=== PATIENT | male | born 1945 | race Caucasian/White ===

== ENCOUNTER 2019-12-15 14:34 | Inpatient (IN) ==
[2019-12-15] MEDS ORDERED: ACETAMINOPHEN 1,000 MG/100 ML VIAL IV STA (15:15)
[2019-12-15] MEDS ORDERED: MoRPHine SULFATE 10 MG/ML CARP/VIAL IV STA (15:15)
[2019-12-15 15:36] LABS: Eosinophils # (auto) 0.01 K/uL (0-0.5); Eosinophils % (auto) 0.1 %; Hemoglobin 13.1 g/dL (14.0-18.0); Immature Granulocytes # (auto) 0.05 K/uL (0.00-0.02); Immature Granulocytes % (auto) 0.4 %; Mean Corpuscular Hemoglobin 26.8 pg (25-34); Mean Corpuscular Volume 83.8 fL (80-100); Mean Platelet Volume 10.7 fL (7.4-10.4); Monocytes # (auto) 0.72 K/uL (0.11-0.59); Monocytes % (auto) 5.7 %; Neutrophils # (auto) 10.49 K/uL (1.4-6.5); Neutrophils % (auto) 82.8 %; Platelet Count 277 K/uL (130-400); RDW Coefficient of Variation 14.6 % (11.5-14.5); RDW Standard Deviation 45.1 fL (36.4-46.3); Red Blood Count 4.89 M/uL (4.7-6.1); White Blood Count 12.67 K/uL (4.8-10.8)
--- NOTE | 2019-12-15 15:36 | XRay Report ---
XR chest 1V portable CLINICAL HISTORY: Chest Pain dyspnea COMPARISON STUDY: 04/06/2018 FINDINGS: Mild increase in cardiac size as well as pulmonary vasculature. Progressive pleural thickening versus loculated effusion right and to a lesser extent left basilar he mithorax. IMPRESSION: . Findings of mild congestive failure with progressive pleural reactive changes versus l oculated effusion over the right hemithorax and left base. ACT 112: Negative or not required by law. The above report was generated using voice recognition software. It may contain grammatical, syntax or spelling errors. Electronically signed by: Kahlil Jacob M.D. 12/15/2019 3:35 PM
[2019-12-15 15:49] LABS: INR 1.1 (0.9-1.1); Partial Thromboplastin Ratio 0.8; Partial Thromboplastin Time 23.7 Seconds (21.0-31.0); Prothrombin Time 11.7 Seconds (9.0-12.0)
[2019-12-15 15:55] LABS: Alanine Aminotransferase 43 U/L (12-78); Albumin Level 3.3 gm/dl (3.4-5.0); Aspartate Aminotransferase 18 U/L (15-37); BUN Creatinine Ratio 23.7 (10-20); Bilirubin Direct 0.1 mg/dl (0-0.2); Blood Urea Nitrogen 22 mg/dl (7-18); Calcium 9.4 mg/dl (8.5-10.1); Carbon Dioxide 32 mmol/L (21-32); Chloride 102 mmol/L (98-107); Creatinine Clr Calc Pharmacy 84.7 ml/min; Est GFR (African American) 94.7; Est GFR (Non-African American) 81.7; Glucose 127 mg/dl (70-99); Lipase 52 U/L (73-393); Magnesium 2.5 mg/dl (1.8-2.4); Potassium 4.7 mmol/L (3.5-5.1); Sodium 138 mmol/L (136-145)
[2019-12-15 16:04] LABS: Albumin Globulin Ratio 0.8 (0.9-2); Alkaline Phosphatase 94 U/L (45-117); Bilirubin,Total 0.6 mg/dl (0.2-1); Phosphorus 3.9 mg/dl (2.5-4.9); Total Protein 7.3 gm/dl (6.4-8.2); Troponin I < 0.015 ng/ml (0-0.045)
--- NOTE | 2019-12-15 16:48 | Emergency Department Note ---
Impression & Plan Metastatic disease, Pulmonary embolism, Lumbar pain, Weakness of right leg ED Provider Note NAME: VANESSA WAGNER AGE: 74 SEX: M ARRIVES VIA: Ambulance INFORMANT: Patient, ED PROVIDER(S): Martin Smiley MD CHIEF COMPLAINT: Back pain and right lower extremity weakness. PLAN: Disposition: Transfer MEDICAL DECISION MAKING: The patient is a pleasant 74-year-old gentleman with a past medical history of hyperlipidemia, ILD on home oxygen who presents emergency department with worsening back pain and new right lower extremity weakness where he is unable to ambulate which occurs in the setting of a recent diagnosis of presumed malignancy related to a left sided neck mass which had had biopsy which demonstrated atypical cells suspicious for carcinoma in addition to having CT of the chest demonstrating infiltrative soft tissue density in the mediastinum worrisome for neoplastic process. The patient was seen by ENT yesterday with plan for repeat biopsy for further characterization of the patient's presumed malignant process. On arrival patient is uncomfortable in moderate pain distress, afebrile with stable vital signs. On exam the patient has 3/5 strength of the right lower extremity. Reflexes within normal limits. There is no clonus. EKG with out overt ST elevation or depression, chest x-ray with prog ressive pleural thickening as well as possibility of loculated effusion further clarified on CT of the chest. WBC 12.6, nonspecific. H/H 13.3/41, similar to prior values. Chemistry without acidosis. Electrolytes unremarkable. Troponin negative/undetectable. Lipase not elevated. CT of the neck, chest and abdomen pelvis were performed and demonstrate evidence suggestive of aggressive and progressive metastatic disease as the patient is now noted to have bilateral neck mass suspicious for malignancy in addition to the patient's known mediastinal mass with new diagnosis of pulmonary embolism. Distally, there are multiple enhancing intramuscular masses involving the paraspinal muscles bila terally and gluteal musculature. The right iliopsoas at the hip region is also involved. Metastatic disease is suspected. There is additional note of likely metastatic infiltration of the aortocaval retroperitoneal soft tissues as well as pancreatic soft tissues. Small pericardial effusion is noted as well. Given the patient's recent biopsy of his neck mass that did show atypical cells consis tent with carcinoma findings are most consistent with metastatic disease. Patient will likely benefit from MRI of the C, T, L-spine for further characterization of the extent of the patient's metastatic disease and how they may relate to his lower extremity weakness. I did review the findings with the [facility] hospitalist, Dr. Mahajan, and we agree the patient's condition and complexity and in the setting of aggressive metastatic disease with concern for possible spinal involvement given his leg weakness reasonable to transfer to tertiary care center for higher level of care. I did review this plan and findings with the patient and he is agreeable for transfer to [facility] [place] and case was reviewed with Dr. Alfaro triage physician and admission was accepted with accepting physician Dr. Su. Patient was treated with Lovenox as well as IV Decadron and morphine for pain. Triage Nursing notes reviewed and agree them. Prior medical records reviewed Vital Signs: reviewed and remarkable for no significant abnormalities Differential diagnosis: Musculoskeletal, disc herniation, fracture, metastatic disease, cord compression, discitis, sciatica, cauda equina, infection, aortic disease, renal colic, gastrointestinal, as well as other pathologies. ER treatment provided: See below. Diagnostics interpreted by me: ECG: Normal sinus rhythm, 89 bpm, no ectopy, Nonspecific T wave abnormality, nonspecific T wave abnormality, no overt ST elevation or depression. Cardiac Monitoring: An order for continuous cardiac monitoring was placed and demonstrated normal sinus rhythm, 89 bpm, no ectopy. Laboratory studies: See below Imaging studies: See below Consultation(s): [facility] [place] physician, Dr. Alfaro HPI: The patient is a pleasant 74-year-old gentleman with a past medical history of hyperlipidemia, ILD on home oxygen who presents emergency department with worsening back pain and new right lower extremity weakness where he is unable to ambulate which occurs in the setting of a recent diagnosis of presumed malignancy related to a left sided neck mass which had had biopsy which demonstrated atypical cells suspicious for carcinoma in addition to having CT of the chest demonstrating infiltrative soft tissue density in the mediastinum worrisome for neoplastic process. The patient was seen by ENT yesterday with plan for repeat biopsy for further characterization of the patient's presumed malignant process. Denies fevers, cough, congestion, new shortness of breath, n/v/d, urinary retention or bowel incontinence. ROS: See above HPI for pertinent positives & negatives. A total of 10 systems reviewed and were otherwise negative. PAST MEDICAL HISTORY:See Below PAST SURGICAL HISTORY:See Below FAMILY HISTORY:See Below SOCIAL HISTORY:See Below HOME MEDICATIONS:See Below ALLERGIES:See Below VITALS:See Below PHYSICAL EXAMINATION: GENERAL: Awake, alert, uncomfortable-appearing, in no distress, BMI 33.3 kg/M . HENT: Normocephalic, atraumatic. Oropharynx with dry mucous membranes and otherwise unremarkable. . EYES: Normal conjunctiva. Sclera non-icteric. NECK: Supple. No nuchal rigidity. FROM. No JVD. RESPIRATORY: Diminished breath sounds throughout with scant intermittent wheeze. CARDIAC: Regular rate, normal rhythm. Extremities warm and well perfused. Pulses equal. ABDOMEN: Soft, non-distended. No tenderness to palpation. No rebound or guarding. No masses. RECTAL: Deferred. MUSCULOSKELETAL: Chest examination reveals no tenderness. The back is symmetrical on inspection without obvious abnormality. Mild tenderness of lumbar paraspinal muscles. No midline tenderness of stepoffs. There is no CVA tendernes s to palpation. No joint edema. LOWER EXTREMITIES: Calves are equal size bilaterally and non-tender. No edema. No discoloration. NEURO: Normal sensorium. No sensory or motor deficits noted. Right lower extremity with 3/5 strength. Otherwise extremities with 5/5 strength. DTRs within normal limits. There is no clonus. SKIN: No rash or jaundice noted. ED COURSE: Critical Care: I have personally spent greater than 95 minutes of critical care time in the direct management of this patient. This includes bedside care, interpretation of diagnostic studies, and testing, discussion with consultants, patient, and family members, and other required patient management activities. This 95 minutes is in excess of all separately billable procedures. Martin Smiley MD Past Med/Surg History Medical History Chronic obstructive pulmonary disease Diabetes mellitus, type 2 since finishing Prednisone in November 2018. Hearing deficit bilateral aides History of recent steroid use Hyperlipidemia Interstitial lung disease On home oxygen therapy 4lpm with activity only and PRN. Sleep apnea CPAP (unable to wear all night) but will use 4lpm at HS. Surgical History H/O left knee surgery History of bronchoscopy History of colonoscopy History of discectomy cervical. Limited side to side, able to look up and down without trouble History of esophagogastroduodenoscopy (EGD) History of left cataract extraction History of open reduction and internal fixation (ORIF) procedure right foot with hardware Hx of prostate biopsy S/P foot surgery, right x2 due to trauma and damage to toes. Family History Brother FHx: leukemia Social History Smoking Status: Never smoker Second Hand Exposure: No; Hx Alcohol Use: Yes Alcohol type: beer Hx Substance Use: No Preferred Language: Gibraltarian Communication Ability: Effective Religion Teacher Required: No Beliefs That Will Affect Care: None Current Living Situation: Spouse Feels Safe at Home: Yes Allergies Allergies Allergy/AdvReac Type Severity Reaction Status Date / Time lisinopril AdvReac Mild Cough Verified 12/15/19 16:21 Home Meds Home Medications Medication Instructions Recorded Confirmed atorvastatin [Lipitor] 20 mg PO HS 01/28/19 12/15/19 hydrocodone-acetaminophen 1 tab PO DIRECTED PRN 12/15/19 12/15/19 prednisone 10 mg PO DAILY 12/15/19 12/15/19 sertraline 50 mg PO HS 12/15/19 12/15/19 Results & Data (ED) Vital Signs Vital Signs - 24 hr 12/15/19 14:38 12/15/19 14:41 12/15/19 14:42 Temperature Temperature Source Pulse Rate 91 H 60 88 Pulse Rate [Finger] Pulse Rate from SpO2 Sensor 91 H 89 87 Respiratory Rate 16 26 H 9 L Respiratory Effort / Characteristics Respiratory Depth Respiratory Pattern Blood Pressure 158/101 H 156/112 H Blood Pressure [Right Arm] Blood Pressure Mean 112 131 Blood Pressure Mean [Right Arm] Blood Pressure Position [Right Arm] Pulse Oximetry 100 100 100 Oxygen Delivery Method Nasal Cannula Nasal Cannula Nasal Cannula Oxygen Flow Rate 3.5 3.5 3.5 Sepsis Recent Fever Within 48 Hours Sepsis New/Unexplained Change in Mental Status Sepsis Action Taken by Nursing 12/15/19 14:46 12/15/19 14:50 12/15/19 14:51 Temperature 36.8 C Temperature Source Oral Pulse Rate 101 H 59 L Pulse Rate [Finger] Pulse Rate from SpO2 Sensor 92 H Respiratory Rate 22 23 Respiratory Effort / Characteristics Respiratory Depth Respiratory Pattern Blood Pressure 158/101 H Blood Pressure [Right Arm] Blood Pressure Mean 120 Blood Pressure Mean [Right Arm] Blood Pressure Position [Right Arm] Pulse Oximetry 99 100 99 Oxygen Delivery Method Nasal Cannula Nasal Cannula Nasal Cannula Oxygen Flow Rate 4 3.5 4 Sepsis Recent Fever Within 48 Hours No Sepsis New/Unexplained Change in Mental Status No Sepsis Action Taken by Nursing No Action Required 12/15/19 15:00 12/15/19 15:01 12/15/19 15:10 Temperature Temperature Source Pulse Rate 90 87 91 H Pulse Rate [Finger] Pulse Rate from SpO2 Sensor 90 88 90 Respiratory Rate 34 H 15 31 H Respiratory Effort / Characteristics Respiratory Depth Respiratory Pattern Blood Pressure 161/109 H Blood Pressure [Right Arm] Blood Pressure Mean 122 Blood Pressure Mean [Right Arm] Blood Pressure Position [Right Arm] Pulse Oximetry 100 100 100 Oxygen Delivery Method Nasal Cannula Nasal Cannula Nasal Cannula Oxygen Flow Rate 3.5 3.5 3.5 Sepsis Recent Fever Within 48 Hours Sepsis New/Unexplained Change in Mental Status Sepsis Action Taken by Nursing 12/15/19 15:20 12/15/19 15:30 12/15/19 15:31 Temperature Temperature Source Pulse Rate 69 60 Pulse Rate [Finger] Pulse Rate from SpO2 Sensor 92 H Respiratory Rate 32 H 28 H 16 Respiratory Effort / Characteristics Respiratory Depth Respiratory Pattern Blood Pressure 168/130 H Blood Pressure [Right Arm] Blood Pressure Mean 147 Blood Pressure Mean [Right Arm] Blood Pressure Position [Right Arm] Pulse Oximetry 98 Oxygen Delivery Method Nasal Cannula Nasal Cannula Nasal Cannula Oxygen Flow Rate 3.5 3.5 3.5 Sepsis Recent Fever Within 48 Hours Sepsis New/Unexplained Change in Mental Status Sepsis Action Taken by Nursing 12/15/19 15:40 12/15/19 15:43 12/15/19 18:31 Temperature Temperature Source Pulse Rate 95 H Pulse Rate [Finger] 79 Pulse Rate from SpO2 Sensor 95 H Respiratory Rate 20 20 Respiratory Effort / Characteristics Non-Labored Spontaneous Respiratory Depth Normal Respiratory Pattern Regular Blood Pressure Blood Pressure [Right Arm] 141/83 H Blood Pressure Mean Blood Pressure Mean [Right Arm] 102 Blood Pressure Position [Right Arm] Pulse Oximetry 99 100 Oxygen Delivery Method Nasal Cannula Room Air Nasal Cannula Oxygen Flow Rate 3.5 3.5 3.5 Sepsis Recent Fever Within 48 Hours Sepsis New/Unexplained Change in Mental Status Sepsis Action Taken by Nursing 12/15/19 20:34 12/15/19 22:27 Temperature Temperature Source Pulse Rate Pulse Rate [Finger] 76 84 Pulse Rate from SpO2 Sensor Respiratory Rate 16 16 Respiratory Effort / Characteristics Respiratory Depth Normal Normal Respiratory Pattern Blood Pressure Blood Pressure [Right Arm] 149/88 H 109/95 Blood Pressure Mean Blood Pressure Mean [Right Arm] 108 99 Blood Pressure Position [Right Arm] Lying Lying Pulse Oximetry 98 99 Oxygen Delivery Method Room Air Room Air Oxygen Flow Rate Sepsis Recent Fever Within 48 Hours Sepsis New/Unexplained Change in Mental Status Sepsis Action Taken by Nursing Laboratory Data Attestation: I reviewed the patient's lab results. Result diagrams: 12/15/19 15:25 12/15/19 15:25 Lab Results 12/15/19 12/15/19 12/15/19 Range/Units 15:25 15:25 15:25 WBC 12.67 H (4.8-10.8) K/uL RBC 4.89 (4.7-6.1) M/uL Hgb 13.1 L (14.0-18.0) g/dL Hct 41.0 L (42-52) % MCV 83.8 (80-100) fL MCH 26.8 (25-34) pg MCHC 32.0 (32-36) g/dL RDW Std Deviation 45.1 (36.4-46.3) fL RDW Coeff of [place] 14.6 H (11.5-14.5) % Plt Count 277 (130-400) K/uL MPV 10.7 H (7.4-10.4) fL Immature Gran % (Auto) 0.4 % Neut % (Auto) 82.8 % Lymph % (Auto) 11.0 % Bates % (Auto) 5.7 % Eos % (Auto) 0.1 % Baso % (Auto) 0.0 % Neut # (Auto) 10.49 H (1.4-6.5) K/uL Lymph # (Auto) 1.40 (1.2-3.4) K/uL Bates # (Auto) 0.72 H (0.11-0.59) K/uL Eos # (Auto) 0.01 (0-0.5) K/uL Baso # (Auto) 0.00 (0-0.2) K/uL Immature Gran # (Auto) 0.05 H (0.00-0.02) K/uL PT 11.7 (9.0-12.0) Seconds INR 1.1 (0.9-1.1) APTT 23.7 (21.0-31.0) Seconds PTT Ratio 0.8 Sodium 138 (136-145) mmol/L Potassium 4.7 (3.5-5.1) mmol/L Chloride 102 (98-107) mmol/L Carbon Dioxide 32 (21-32) mmol/L Anion Gap 4.0 (3-11) BUN 22 H (7-18) mg/dl Creatinine 0.93 (0.6-1.4) mg/dl Est Cr Clr Drug Dosing 84.7 ml/min Est GFR ( Amer) 94.7 Est GFR (Non-Af Amer) 81.7 BUN/Creatinine Ratio 23.7 H (10-20) Glucose 127 H (70-99) mg/dl Calcium 9.4 (8.5-10.1) mg/dl Phosphorus 3.9 (2.5-4.9) mg/dl Magnesium 2.5 H (1.8-2.4) mg/dl Total Bilirubin 0.6 (0.2-1) mg/dl Direct Bilirubin 0.1 (0-0.2) mg/dl AST 18 (15-37) U/L ALT 43 (12-78) U/L Alkaline Phosphatase 94 (45-117) U/L Troponin I < 0.015 (0-0.045) ng/ml Total Protein 7.3 (6.4-8.2) gm/dl Albumin 3.3 L (3.4-5.0) gm/dl Globulin 4.0 (2.5-4.0) gm/dl Albumin/Globulin Ratio 0.8 L (0.9-2) Lipase 52 L (73-393) U/L TSH 1.140 (0.300-4.500) uIu/ml Administered Medications Sodium Chloride (Nss) 500 mls @ 125 mls/hr IV .Q4H [facility] Stop: 01/14/20 19:29 Last Admin: 12/15/19 19:47 Dose: 125 mls/hr Documented by: [id number] Discontinued Medications Dexamethasone (Decadron) 10 mg IV NOW ONE Stop: 12/15/19 19:57 Last Admin: 12/15/19 21:43 Dose: 10 mg Documented by: [id number] Enoxaparin Sodium (Lovenox 1 Mg/Kg Providers Use Dosing Set) 1 mg SQ NOW STA Stop: 12/15/19 18:10 Last Admin: 12/15/19 19:33 Dose: 1 mg Documented by: [id number] Enoxaparin Sodium (Lovenox) 100 mg SQ 1915 ONE Stop: 12/15/19 19:16 Last Admin: 12/15/19 19:32 Dose: 100 mg Documented by: [id number] Acetaminophen (Ofirmev) 1,000 mg in 100 mls @ 400 mls/hr IV NOW STA Stop: 12/15/19 15:29 Last Infusion: 12/15/19 15:58 Dose: 0 mls/hr Documented by: [id number] Admin: 12/15/19 15:42 Dose: 400 mls/hr Documented by: [id number] Ioversol (Optiray 320 125ml) 119 ml IV ONCE ONE Stop: 12/15/19 17:22 Last Admin: 12/15/19 17:21 Dose: 119 ml Documented by: [id number] Morphine Sulfate (Morphine Sulfate) 8 mg IV NOW STA Stop: 12/15/19 15:16 Last Admin: 12/15/19 15:41 Dose: 8 mg Documented by: [id number] Imaging Data Radiologist's Impression: EARNEST XR chest 1V portable CLINICAL HISTORY: Chest Pain dyspnea COMPARISON STUDY: 04/06/2018 FINDINGS: Mild increase in cardiac size as well as pulmonary vasculature. Progressive pleural thickening versus loculated effusion right and to a lesser extent left basilar hemithorax. IMPRESSION: . Findings of mild congestive failure with progressive pleural reactive changes versus loculated effusion over the right hemithorax and left base. CT soft tissue neck w con CT DOSE: CLINICAL HISTORY: malignant neck mass, pain, RLE weakness TECHNIQUE: Helical images were acquired during intravenous administration of 119 cc of Optiray 320. A dose lowering technique was utilized adhering to the principles of ALARA. COMPARISON STUDY: None. FINDINGS: There are bilateral pleural effusions. There is an infiltrative mediastinal mass. No thyroid masses are visualized. No salivary gland masses are visualized. There are infiltrative masses involving the base of each neck. Within the posterior triangle, there is an ill-defined 6 cm mass. At the base of the right neck, there is infiltrative mass extending into the mediastinum. There are no fluid collections suspicious for abscess. There is no evidence of airway compromise. No mucosal space masses are visualized. IMPRESSION: 1. Large bilateral infiltrative masses involving the base of each neck with mediastinal extension. The findings are consistent with the patient's known malignancy. 2. Bilateral pleural effusions right larger than left CT ANGIOGRAM OF THE CHEST CLINICAL HISTORY: Difficulty breathing. Possible pulmonary embolism. COMPARISON STUDY: March 2018 TECHNIQUE: Following the IV administration of 119 mL of Optiray-320, CT angiogram of the thorax was performed from the thoracic inlet to the lung bases utilizing the pulmonary embolus protocol. Images are reviewed in the axial, sagittal, and coronal planes. IV contrast was administered without complication. MIP imaging was performed. A dose lowering technique was utilized adhering to the principles of ALARA. CT DOSE: FINDINGS: There is soft tissue infiltration of the anterior and superior mediastinum. There is mild subcarinal adenopathy. There is mild right hilar adenopathy. There is no evidence of pathologic axillary lymphadenopathy. There was no evidence of thoracic aortic dilatation. There are right upper and middle lobe pulmonary artery filling defects indicating acute pulmonary embolism. There is a moderate right pleural effusion and small left pleural effusion. Evaluation the parenchyma is limited due to respiratory motion artifact. There is subpleural reticulation. There are right lower lobe airspace opacities likely representing compressive atelectasis. There is a small pericardial effusion. IMPRESSION: 1. Right upper and middle lobe pulmonary artery filling defects indicative of acute pulmonary embolism 2. Small pericardial effusion 3. Moderate right pleural effusion and small left pleural effusion 4. Right lower lobe airspace opacities statistically atelectatic 5. Infiltrative mediastinal mass extending into the base the neck. There is mild secondary narrowing of the left innominate vein. Although an infectious/inflammatory process is within the differential given the infiltrative nature of the process, the lesion is statistically malignant given the reported history of a known malignant neck mass. CT abd pelvis IV con only CLINICAL HISTORY: Abdominal and back pain. Recent diagnosis of neck malignancy. Lower extremity weakness. COMPARISON STUDY: None. TECHNIQUE: The patient was scanned in a dynamic helical fashion during intravenous administration of 119 cc of Optiray 320 A dose lowering technique was utilized adhering to the principles of ALARA. CT DOSE: 2366.93 mGy.cm FINDINGS: Lower chest: There is a moderate right pleural effusion small left pleural effusion. There is a small pericardial effusion. Liver: The contrast-enhanced liver is normal in size, contour, and attenuation. There is no intrahepatic biliary ductal dilatation. The hepatic veins and portal veins are patent. Gallbladder: Unremarkable. Spleen: Normal in size and attenuation. Pancreas: There is infiltration of the peripancreatic soft tissues, a finding most often seen in pancreatitis. Given the infiltrative nature of the mediastinal mass, a neoplastic process cannot be excluded Adrenal glands: Unremarkable. Kidneys: There is symmetric renal cortical enhancement. The kidneys are normal in size without hydronephrosis. Bowel: There are no transition zones to indicate bowel obstruction. There is no evidence of acute diverticulitis. The appendix appears normal. Peritoneum: There is no intraperitoneal free air or abdominal ascites. Vasculature: The abdominal aorta is normal in course and caliber. Adenopathy: There is infiltration of the aortocaval retroperitoneal soft tissues . This could be neoplastic or inflammatory Pelvic viscera: There is mild prostatomegaly. . Skeletal structures: There is a suspected 5 cm mass involving the right iliopsoas at the hip region. There are multiple soft tissue nodules within the gluteal regions bilaterally. There are enhancing soft tissue masses within the left paraspinal musculature and right paraspinal musculature IMPRESSION: 1. Multiple enhancing intramuscular masses involving the paraspinal muscles bilaterally. The gluteal musculature. As well as the right iliopsoas at the hip region. Metastatic disease is the diagnosis of exclusion 2. No evidence of bowel obstruction. No evidence of free air 3. Normal appendix. No evidence of acute diverticulitis 4. Unusual infiltration of the aortocaval retroperitoneal soft tissues. This is likely secondary malignancy given the other findings although an inflammatory process could appear similar 5. Infiltration of the peripancreatic soft tissues. Pancreatitis versus an unusual manifestation of metastatic disease. 6. Bilateral pleural effusions right greater than left 7. Small pericardial effusion Blood Pressure Blood Pressure Findings: Elevated blood pressure Blood Pressure Disposition: elevated BP felt to be situational Discharge Plan Visit Data Chief Complaint: Leg Injury/Pain Stated Complaint: Back Pain ED Provider: Jose Daniel Griffith Discharge Problem: Metastatic disease, Pulmonary embolism, Lumbar pain, Weakness of right leg Forms Stand Alone Forms: [facility] Prescriptions Prescriptions: No Action atorvastatin [Lipitor] 20 mg Tablet 20 mg PO HS RF: 0 prednisone 20 mg tablet 10 mg PO DAILY RF: 0 sertraline 50 mg tablet 50 mg PO HS RF: 0 hydrocodone-acetaminophen 5-325 mg Tablet 1 tab PO DIRECTED PRN (Reason: Pain) RF: 0 Discharge Problem: Metastatic disease Qualifiers: Area of secondary neoplastic involvement: unspecified site Qualified Code(s): 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
--- NOTE | 2019-12-15 17:17 | Electrocardiogram Report ---
Test Reason : Blood Pressure : / mmHG Vent. Rate : 089 BPM Atrial Rate : 089 BPM P-R Int : 186 ms QRS Dur : 080 ms QT Int : 348 ms P-R-T Axes : 027 -46 030 degrees QTc Int : 423 ms Normal sinus rhythm Left axis deviation Low voltage QRS Possible Lateral infarct , age undetermined Abnormal ECG When compared with ECG of 15-DEC-2002 11:54, QRS axis Shifted left Borderline criteria for Lateral infarct are now Present Nonspecific T wave abnormality now evident in Anterolateral leads Confirmed by Rich Chavira ([id number]) on 12/15/2019 5:17:22 PM Referred By: REFERRED SELF Confirmed By:Robert Chavira
[2019-12-15] MEDS ORDERED: OPTIRAY 320 125ml IV ONE (17:21)
--- NOTE | 2019-12-15 17:34 | CT Scan Report ---
CT ANGIOGRAM OF THE CHEST CLINICAL HISTORY: Difficulty breathing. Possible pulmonary embolism. COMPARISON STUDY: March 2018 TECHNIQUE: Following the IV administration of 119 mL of Optiray-320, CT angiogram of the thorax was p erformed from the thoracic inlet to the lung bases utilizing the pulmonary embolus protocol. Images a re reviewed in the axial, sagittal, and coronal planes. IV contrast was administered without complica tion. MIP imaging was performed. A dose lowering technique was utilized adhering to the principles o f ALARA. CT DOSE: FINDINGS: There is soft tissue infiltration of the anterior and superior mediastinum. There is mild subcarinal adenopathy. There is mild right hilar adenopathy. There is no evidence of pathologic axillary lymphad enopathy. There was no evidence of thoracic aortic dilatation. There are right upper and middle lobe pulmonary artery filling defects indicating acute pulmonary emb olism. There is a moderate right pleural effusion and small left pleural effusion. Evaluation the parenchyma is limited due to respiratory motion artifact. There is subpleural reticula tion. There are right lower lobe airspace opacities likely representing compressive atelectasis. There is a small pericardial effusion. IMPRESSION: 1. Right upper and middle lobe pulmonary artery filling defects indicative of acute pulmonary embolis m 2. Small pericardial effusion 3. Moderate right pleural effusion and small left pleural effusion 4. Right lower lobe airspace opacities statistically atelectatic 5. Infiltrative mediastinal mass extending into the base the neck. There is mild secondary narrowing of the left innominate vein. 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 ACT 112: Negative or not required by law. Electronically signed by: Chris Ahumada M.D. 12/15/2019 5:33 PM
--- NOTE | 2019-12-15 17:43 | CT Scan Report ---
CT abd pelvis IV con only CLINICAL HISTORY: Abdominal and back pain. Recent diagnosis of neck malignancy. Lower extremity weakn ess. COMPARISON STUDY: None. TECHNIQUE: The patient was scanned in a dynamic helical fashion during intravenous administration of 119 cc of Optiray 320 A dose lowering technique was utilized adhering to the principles of ALARA. CT DOSE: 2366.93 mGy.cm FINDINGS: Lower chest: There is a moderate right pleural effusion small left pleural effusion. There is a small pericardial effusion. Liver: The contrast-enhanced liver is normal in size, contour, and attenuation. There is no intrahepa tic biliary ductal dilatation. The hepatic veins and portal veins are patent. Gallbladder: Unremarkable. Spleen: Normal in size and attenuation. Pancreas: There is infiltration of the peripancreatic soft tissues, a finding most often seen in panc reatitis. Given the infiltrative nature of the mediastinal mass, a neoplastic process cannot be exclu ded Adrenal glands: Unremarkable. Kidneys: There is symmetric renal cortical enhancement. The kidneys are normal in size without hydron ephrosis. Bowel: There are no transition zones to indicate bowel obstruction. There is no evidence of acute div erticulitis. The appendix appears normal. Peritoneum: There is no intraperitoneal free air or abdominal ascites. Vasculature: The abdominal aorta is normal in course and caliber. Adenopathy: There is infiltration of the aortocaval retroperitoneal soft tissues. This could be neopl astic or inflammatory Pelvic viscera: There is mild prostatomegaly. . Skeletal structures: There is a suspected 5 cm mass involving the right iliopsoas at the hip region. There are multiple soft tissue nodules within the gluteal regions bilaterally. There are enhancing so ft tissue masses within the left paraspinal musculature and right paraspinal musculature IMPRESSION: 1. Multiple enhancing intramuscular masses involving the paraspinal muscles bilaterally. The gluteal musculature. As well as the right iliopsoas at the hip region. Metastatic disease is the diagnosis of exclusion 2. No evidence of bowel obstruction. No evidence of free air 3. Normal appendix. No evidence of acute diverticulitis 4. Unusual infiltration of the aortocaval retroperitoneal soft tissues. This is likely secondary ministerio gnancy given the other findings although an inflammatory process could appear similar 5. Infiltration of the peripancreatic soft tissues. Pancreatitis versus an unusual manifestation of m etastatic disease. 6. Bilateral pleural effusions right greater than left 7. Small pericardial effusion ACT 112: Negative or not required by law. Electronically signed by: Chris Ahumada M.D. 12/15/2019 5:41 PM
--- NOTE | 2019-12-15 17:50 | CT Scan Report ---
CT soft tissue neck w con CT DOSE: CLINICAL HISTORY: malignant neck mass, pain, RLE weakness TECHNIQUE: Helical images were acquired during intravenous administration of 119 cc of Optiray 320. A dose lowering technique was utilized adhering to the principles of ALARA. COMPARISON STUDY: None. FINDINGS: There are bilateral pleural effusions. There is an infiltrative mediastinal mass. No thyroid masses are visualized. No salivary gland masses are visualized. There are infiltrative masses involving the base of each neck. Within the posterior triangle, there i s an ill-defined 6 cm mass. At the base of the right neck, there is infiltrative mass extending into the mediastinum. There are no fluid collections suspicious for abscess. There is no evidence of airway compromise. No mucosal space masses are visualized. IMPRESSION: 1. Large bilateral infiltrative masses involving the base of each neck with mediastinal extension. Th e findings are consistent with the patient's known malignancy. 2. Bilateral pleural effusions right larger than left ACT 112: Negative or not required by law. Electronically signed by: Chris Ahumada M.D. 12/15/2019 5:49 PM
[2019-12-15] MEDS ORDERED: ENOXAPARIN 1 MG/KG SQ STA (18:09)
[2019-12-15] MEDS ORDERED: ENOXAPARIN 100 MG/1ML SYR SQ ONE (19:15)
[2019-12-15] MEDS ORDERED: MoRPHine SULFATE 4 MG/ML 1 ML CARP\\VIAL IV PRN (19:29)
[2019-12-15] MEDS ORDERED: MoRPHine SULFATE 2 MG/ML CARP IV PRN (19:29)
[2019-12-15] MEDS: SODIUM CHLORIDE 0.9% 500 ML IV SCH (19:47)
[2019-12-15] MEDS ORDERED: DEXAMETHASONE SOD INJ 10 MG/ML VIAL IV ONE (19:56)
--- NOTE | 2019-12-15 20:05 | Emergency Department Note ---
General (ED) Blank Date of Service December 15, 2019 This patient was signed out to me to Dr. arroyo at shift change. The patient has been accepted at [facility] for transfer. He has multiple masses and likely malignancy for which a work-up just already came with back pain and was also diagnosed with a PE has been given Lovenox. When I go and check on him he is resting comfortably no stable vital signs. He did have an accepting physician however [facility] said they will not have a bed tonight after waiting multiple hours for a bed in the ED. I did discuss the case with our local [facility] doctor, Dr. Benítez, and he will be admitted here overnight and transferred when able to [facility]. : Metastatic disease Qualifiers: Area of secondary neoplastic involvement: unspecified site Qualified Code(s): 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
[2019-12-15] MEDS ORDERED: HYDROmorphone INJ 0.5 MG/0.5 ML SYR IV PRN (23:10)
[2019-12-16] MEDS ORDERED: SODIUM CHLORIDE 0.9% 1000ML 1,000 ML IV SCH (00:23)
[2019-12-16] MEDS ORDERED: NITROGLYCERIN SL 0.4 MG/TAB TAB SL PRN (00:23)
[2019-12-16] MEDS ORDERED: ACETAMINOPHEN 325 MG TAB PO PRN (00:23)
[2019-12-16] MEDS ORDERED: POLYETHYLENE (MIRALAX) 17 GM PACK PO PRN (00:23)
[2019-12-16] MEDS ORDERED: ONDANSETRON INJ 2 MG/ML 2 ML VIAL IV PRN (00:23)
[2019-12-16] MEDS: SODIUM CHLORIDE 0.9% 500 ML IV SCH (00:25)
[2019-12-16] MEDS ORDERED: HYDROCODONE/ACETAMOPHEN 5/325MG TAB PO PRN (00:53)
[2019-12-16] MEDS ORDERED: GLUCOSE 40% GEL 15 GM TUBE PO PRN (01:00)
[2019-12-16] MEDS ORDERED: GLUCOSE 10 TABS/TUBE PO PRN (01:00)
[2019-12-16] MEDS ORDERED: DEXTROSE 50% 50 ML SYRINGE IV PRN (01:00)
[2019-12-16] MEDS ORDERED: GLUCAGON FOR INJ 1 MG VIAL SQ PRN (01:00)
[2019-12-16] MEDS ORDERED: CARBOHYDRATES FOR HYPOGLYCEMIA PO PRN (01:00)
[2019-12-16 01:35] LABS: Appearance Urine Clear (Clear); Bilirubin Urine Negative (Negative); Blood Urine Negative (Negative); Color Urine Yellow; Glucose Urine UA Negative (Negative); Ketones Urine 1+ (Negative); Leukocyte Esterase Urine Negative (Negative); Nitrite Urine Negative (Negative); Protein Urine Negative (Negative); Specific Gravity Urine > 1.045 (1.000-1.030); Urobilinogen Urine Negative (Negative)
--- NOTE | 2019-12-16 03:21 | History and Physical Report ---
DATE OF ADMISSION: 12/15/2019 CHIEF COMPLAINT: Hip pain and neck pain. HISTORY OF PRESENT ILLNESS: This is a 74-year-old male with past medical history significant for interstitial lung disease, chronic respiratory failure on 4 liters of oxygen all the time secondary to interstitial lung disease, history of bilateral pleural effusion, hypertension, first degree AV block, BPH, microcytic anemia, drug-induced diabetes. The patient was found to have left neck mass since September of this year, and a couple of weeks ago, he had a fine needle biopsy done and he saw an ENT yesterday and the biopsy came back suspicious for malignancy.There is plan for repeat biopsy with core needle and PET scan, but the patient comes to the ER today because of increasing pain in the left neck pain and also pain in the hips region and the imaging studies in the ER showed right middle and upper lobe acute pulmonary embolism, small pericardial effusion, moderate right pleural effusion, small left pleural effusion and also infiltrative mediastinal mass extending into the base of the neck, mild narrowing of the left innominate vein and also CAT scan of the abdomen and pelvis showed multiple enhancing intramuscular masses involving the paraspinal muscles bilaterally and also right iliopsoas of the hip region, metastatic disease is a diagnosis of exclusion, infiltration of the peripancreatic soft tissues, unusual infiltration of the aortocaval retroperitoneal soft tissues, because of this imaging studies, it was thought the patient will be best served to be transferred to [facility] [place] was called and was accepted in transfer. Because there was no beds available tonight, we are admitting the patient to the hospital for possible transfer to [place] in a.m. The patient is currently resting comfortably and hemodynamically stable. Currently says the pain is coming back in the neck region and requesting pain medication. neck region. Denies any earaches. For last 2 weeks he was having some difficulty swallowing, mainly is on the liquids. Says he lost appetite, he only ate banana today. Currently received Decadron and says his swallowing is little better today. He is always short of breath, uses 4 liters of oxygen. He cannot walk much because of this lung disease, only walks for about 60 feet. Lives with his . He uses walker. No loss of weight as per the patient. The patient denies any chest pain, no fever, no chills. He had a cough recently, but it got resolved. No nausea, no abdominal pain. He had diarrhea a couple of days ago, but last 2 days he did not moved his bowels. Denies any blood in the stools. Normal bladder movements. No rash seen. ALLERGIES: LISINOPRIL. PAST MEDICAL HISTORY: As mentioned above. PAST SURGICAL HISTORY: Biopsy of prostate, cervical disc removed, colonoscopy, open reduction internal fixation of the fracture of the right ankle, removal of the left knee cartilage, spinal fusion C6-C7, trimalleolar ankle fracture repair in 2012. MEDICATIONS: Currently the patient is on Lipitor 20 mg at bedtime, hydrocodone/acetaminophen 5/325 mg one tablet p.o. q. 6 hours p.r.n., prednisone 10 mg p.o. daily, Zoloft 50 mg p.o. at bedtime. FAMILY HISTORY: Significant for brother who of leukemia at age 61. Brother has diabetes. Father of MS at age 57. SOCIAL HISTORY: and lives with his . Former smoker, quit in 1982. Smoked 1 pack a day for 20 years. Alcohol, 2 beers daily. No drug use. REVIEW OF SYMPTOMS: As per HPI. Rest of review of symptoms negative. PHYSICAL EXAMINATION: GENERAL: The patient is of moderate build, not in acute distress. VITAL SIGNS: Temperature 36.8, pulse 82, respiratory rate 16, blood pressure 151/92, oxygen 100% on 4 liters. HEENT: No pallor, no icterus. Pupils equal, round, reactive to light. NECK: Left-sided neck mass seen, mild erythematous changes. CARDIOVASCULAR: S1, S2 heard, regular rate and rhythm, no murmur, no gallop. RESPIRATORY SYSTEM: Normal AP diameter. No accessory muscle use. Mild bibasilar crackles. No wheezing. ABDOMEN: Soft, bowel sounds present, nontender. No distention. CENTRAL NERVOUS SYSTEM: Cranial nerves II-XII grossly intact, nonfocal. EXTREMITIES: No edema, no erythema. LABORATORY DATA: WBC 12.6, hemoglobin 13.1, hematocrit 41, platelets 277. PT 11.7, INR 1.1, APTT 23.7. Sodium 138, potassium 4.7, chloride 102, bicarbonate 32, BUN 22, creatinine 0.9, serum glucose 127, calcium 9.4, phosphorus 3.9, magnesium 2.5, total bilirubin 0.6, AST 18, ALT 43, alkaline phosphatase 94. Troponin I less than 0.015. Lipase 52. TSH 1.1. Chest x-ray findings of mild CHF with progressive pleural reactive changes versus loculated effusion over the right hemothorax and left base. IMAGING: CT of abdomen and pelvis with IV contrast, multiple enhancing intramuscular masses involving the paraspinal muscles bilaterally, the gluteal musculature as well as right iliopsoas at the hip region, metastatic disease is a diagnosis of exclusion. No evidence of bowel obstruction, no evidence of free air, normal appendix. No evidence of acute diverticulitis, unusual infiltration of the aortocaval retroperitoneal soft tissues. This is likely secondary to malignancy given the other findings, infiltration of the peripancreatic soft tissues, pancreatitis versus an unusual manifestation of the metastatic disease, bilateral pleural effusions, right greater than left, small pericardial effusion. CTA of the chest, right upper and middle lobe pulmonary artery filling defect indicative of acute pulmonary embolism, small pericardial effusion, moderate right pleural effusion, small left pleural effusion, right lower lobe airspace opacity statistically atelectatic, infiltrative mediastinal mass extending to the base of the neck. There is mild secondary narrowing of the left innominate vein. Soft tissue CAT scan of the neck, large bilateral infiltrative masses involving the base of the each neck with mediastinal extensions. The findings are consistent with the patient's known malignancy and bilateral pleural effusions, right greater than left. EKG: Normal sinus rhythm, rate of 89, nonspecific T-wave abnormality seen. ASSESSMENT AND PLAN: This is a 74-year-old male with a neck mass since September, recent fine needle aspiration showing suspicion for malignancy, comes because of severe neck pain and hip pain and found to have metastatic disease and there was a plan to transfer to tertiary care, but because of non bed availability tonight, the patient was admitted. 1. Metastatic disease possible from this neck masses: Had a fine needle biopsy showing suspicion for malignancy, there was a plan for repeat biopsy and PET scan, but came with severe neck pain and the hip pain and the imaging studies shows multiple intramuscular masses involving the paraspinal muscles, infiltration of the retroperitoneal soft tissues, infiltration of the pancreatic soft tissue. Plan for transfer to [place], possibly in a.m. when beds are available. 2. Acute pain secondary to above: We will continue home hydrocodone, place him on IV Dilaudid p.r.n. for now. 3. Nutrition: The patient is not able to swallow solids for the last 2 weeks. Currently placed him on full liquid diet. Received a dose of Decadron in the ER. 4. Interstitial lung disease, chronic respiratory failure on 4 liters oxygen: Continue the same, follows with pulmonary, has bilateral pleural effusion, right greater than left. Currently saturations okay. Followup in [place]. 5. Small pericardial effusions: Needs followup. 6. Steroid-induced diabetes: The patient used to be on steroids for his interstitial lung disease, but because it caused diabetes it was stopped. Says he is no longer diabetic since last 1 year. Recently, he was started on a small dose of prednisone for his pain, which he still has few more days to go. We will follow his HbA1c levels, follow his blood sugars. He again received Decadron in the ER. 7. Hyperlipidemia. Continue statin for now. 8. Depression. Continue Zoloft: 9. Acute pulmonary embolism: On the CTA of the chest today. He was started on Lovenox, which we will continue. 10. Deep venous thrombosis prophylaxis: On Lovenox. 11. Disposition: Admit to [facility]. Expect to transfer to [place] when beds are available. Full code as per my discussion with the patient. MAYURI
--- NOTE | 2019-12-16 04:30 | Discharge Summary ---
Date of Service December 16, 2019 Admission HPI Per Admitting Provider This is a 74-year-old male with past medical history significant for interstitial lung disease, chronic respiratory failure on 4 liters of oxygen all the time secondary to interstitial lung disease, history of bilateral pleural effusion, hypertension, first degree AV block, BPH, microcytic anemia, drug-induced diabetes. The patient was found to have left neck mass since September of this year, and a couple of weeks ago, he had a fine needle biopsy done and he saw an ENT yesterday and the biopsy came back suspicious for malignancy.There is plan for repeat biopsy with core needle and PET scan, but the patient comes to the ER today because of increasing pain in the left neck pain and also pain in the hips region and the imaging studies in the ER showed right middle and upper lobe acute pulmonary embolism, small pericardial effusion, moderate right pleural effusion, small left pleural effusion and also infiltrative mediastinal mass extending into the base of the neck, mild narrowing of the left innominate vein and also CAT scan of the abdomen and pelvis showed multiple enhancing intramuscular masses involving the paraspinal muscles bilaterally and also right iliopsoas of the hip region, metastatic disease is a diagnosis of exclusion, infiltration of the peripancreatic soft tissues, unusual infiltration of the aortocaval retroperitoneal soft tissues, because of this imaging studies, it was thought the patient will be best served to be transferred to [facility] [place] was called and was accepted in transfer. Because there was no beds available [facility], we are admitting the patient to the hospital for possible transfer to [place] in a.m. The patient is currently resting comfortably and hemodynamically stable. Currently says the pain is coming back in the neck region and requesting pain medication. neck region. Denies any earaches. For last 2 weeks he was having some difficulty swallowing, mainly is on the liquids. Says he lost appetite, he only ate banana today. Currently received Decadron and says his swallowing is little better today. He is always short of breath, uses 4 liters of oxygen. He cannot walk much because of this lung disease, only walks for about 60 feet. Lives with his . He uses walker. No loss of weight as per the patient. The patient denies any chest pain, no fever, no chills. He had a cough recently, but it got resolved. No nausea, no abdominal pain. He had diarrhea a couple of days ago, but last 2 days he did not moved his bowels. Denies any blood in the stools. Normal bladder movements. No rash seen. Admission Exam Per Admitting Provider GENERAL: The patient is of moderate build, not in acute distress. VITAL SIGNS: Temperature 36.8, pulse 82, respiratory rate 16, blood pressure 151/92, oxygen 100% on 4 liters. HEENT: No pallor, no icterus. Pupils equal, round, reactive to light. NECK: Left-sided neck mass seen, mild erythematous changes. CARDIOVASCULAR: S1, S2 heard, regular rate and rhythm, no murmur, no gallop. RESPIRATORY SYSTEM: Normal AP diameter. No accessory muscle use. Mild bibasilar crackles. No wheezing. ABDOMEN: Soft, bowel sounds present, nontender. No distention. CENTRAL NERVOUS SYSTEM: Cranial nerves II-XII grossly intact, nonfocal. EXTREMITIES: No edema, no erythema. Principal Diagnosis Metastatic disease Discharge Data Allergies Allergy/AdvReac Type Severity Reaction Status Date / Time lisinopril AdvReac Mild Cough Verified 12/15/19 16:21 Consultations 12/16/19 00:23 Consult Case Management - Discharge Planning Routine Ordered Studies 12/15/19 16:16 CT abd pelvis IV con only Stat CT angio chest PE protocol Stat CT soft tissue neck w con Stat Hospital Course (1) Metastatic disease: This is a 74-year-old male with a neck mass since September, recent fine needle aspiration showing suspicion for malignancy, comes because of severe neck pain and hip pain and found to have metastatic disease and there was a plan to transfer to tertiary care, but because of non bed availability tonight, the patient was admitted. 1. Metastatic disease possible from this neck masses: Had a fine needle biopsy showing suspicion for malignancy, there was a plan for repeat biopsy and PET scan, but came with severe neck pain and the hip pain and the imaging studies shows multiple intramuscular masses involving the paraspinal muscles, infiltration of the retroperitoneal soft tissues, infiltration of the pancreatic soft tissue. Plan for transfer to [place], possibly in a.m. when beds are available. 2. Acute pain secondary to above: We will continue home hydrocodone, place him on IV Dilaudid p.r.n. for now. 3. Nutrition: The patient is not able to swallow solids for the last 2 weeks. Currently placed him on full liquid diet. Received a dose of Decadron in the ER. 4. Interstitial lung disease, chronic respiratory failure on 4 liters oxygen: Continue the same, follows with pulmonary, has bilateral pleural effusion, right greater than left. Currently saturations okay. Followup in [place]. 5. Small pericardial effusions: Needs followup. 6. Steroid-induced diabetes: The patient used to be on steroids for his interstitial lung disease, but because it caused diabetes it was stopped. Says he is no longer diabetic since last 1 year. Recently, he was started on a small dose of prednisone for his pain, which he still has few more days to go. We will follow his HbA1c levels, follow his blood sugars. He again received Decadron in the ER. 7. Hyperlipidemia. Continue statin for now. 8. Depression. Continue Zoloft: 9. Acute pulmonary embolism: On the CTA of the chest today. He was started on Lovenox, which we will continue. 10. Deep venous thrombosis prophylaxis: On Lovenox. 11. Disposition: Admit to [facility]. Expect to transfer to [place] when beds are available. Full code as per my discussion with the patient. Patient is getting transferred to [place]. (2) Pulmonary embolism: (3) Lumbar pain: Total Time Total Time Spent Total Time Spent (In Minutes): 40 minutes Total Time Includes: Examination of the Patient, Medication Reconciliation and Other Discharge Plan Discharge Items Patient Disposition: Transfer Acute Care Hospital Reason For Visit: HIP AND NECK PAIN Discharge Diagnosis: metastatic disease Pulmonary embolism Activity: As commented below Activity Comment: Transferring to tertiary care Non-emergency contact: Primary Care Provider Call non-emergency contact if: you have any medication questions and your symptoms worsen Follow-up/Referrals: Rosalia Mckeon MD [Primary Care Provider] - Diet: Nothing by Mouth Diet Comment: npo for now Addtl Attending Provider Instructions: npo until seen in [facility] Iv dilaudid 0.5mg q 3hrs prn Pending Studies at Discharge: No Stand-Alone Forms: My [facility] Skilled Items Patient informed of condition?: Yes DNR: No Discharge Level of Care: Other Communicable Disease: No Discharge Prognosis: Other Lines: Peripheral IV Urinary Catheter: No Medications and DC Order Prescriptions: Continued atorvastatin [Lipitor] 20 mg Tablet 20 mg PO HS RF: 0 prednisone 20 mg tablet 10 mg PO DAILY RF: 0 sertraline 50 mg tablet 50 mg PO HS RF: 0 hydrocodone-acetaminophen 5-325 mg Tablet 1 tab PO DIRECTED PRN (Reason: Pain) RF: 0 Discharge Orders: Discharge Order (Routine); Ordered 12/16/19 Ordered By: Michael Benítez Admission Data Admit Date/Time: 12/15/19 23:10 Attending Provider: Neyda Stanley Admit Provider: Michael Benítez Primary Care Provider: Rosalia Mckeon
[2019-12-16] MEDS ORDERED: INSULIN ASPART 100 UNITS/ML 3 ML PEN SC SCH (07:30)
[2019-12-16] MEDS ORDERED: ENOXAPARIN 100 MG/1ML SYR SQ SCH (08:00)
[2019-12-16] MEDS ORDERED: predniSONE 10 MG TABLET PO SCH (09:00)
[2019-12-16] MEDS ORDERED: ATORVASTATIN 20 MG TAB PO SCH (21:00)
[2019-12-16] MEDS ORDERED: SERTRALINE HCL 50 MG TABLET PO SCH (21:00)
== END 2019-12-16 06:07 | disposition short-term general hospital (02) | DRG 843 ==
LOC: ED 14:34 → 2W 23:10